=== PATIENT | male | born 1960 | race Caucasian/White ===

== ENCOUNTER 2016-07-14 15:35 | Emergency (ER) | payer SELFPAY ==
[~2016-07-14] VITALS: Ht 180.3 cm; Wt 136.4 kg
[~2016-07-14 15:35] MED LIST: ATEN25TA PO; BUPR300T52 PO; DEXT10TA PO; DICL100G8 TOPICAL; ERGO500050 PO; FLUT16SP NS; INSU100I13 SUBQ; INSU100I8 SUBQ; LISD70CA2 PO; LISI-567 PO; METF1000 PO; WARF10TA4 PO; WARF5TAB7 PO
[2016-07-14 15:38] VITALS: BP 142/94; PULSE 85; RESP 18; O2SAT 98
--- NOTE | 2016-07-14 15:48 | ED.REPORT ---
HPI-Abd Pain M 40 and Over Date of Service Jul 14, 2016 ED Provider: Benson Larsen MD Pt is a 56 y/o male w/ a hx of atrial fibrillation on Coumadin, hypertension, kidney stones, and multiple urethral surgeries who reports to the ER complaining of right flank pain that began today. Pt describes the pain as continuous and reports the pain travels down his hip. Pt c/o associated dysuria , urinary frequency, chills and nausea. Pt says he experienced this type of pain before when he had a kidney stone ten years previously. Pt has had no kidney stones since the last occurrence and reports this pain is similar. Pain is rated at a 6/10 currently and an 8/10 at its most severe. Pt denies vomiting and has not taken any medicine for the pain. Pain is slightly relieved when lying down. Pt is currently on Coumadin and his levels were last measured in March. Nursing Notes Stated Complaint: R SIDE ABD PAIN Chief Complaint: Male Abdominal Pain Nursing Notes Reviewed: Yes ([employer], [employer] not reconiciled, EMR indicates ho warfarin use) Allergies: Coded Allergies: No Known Allergies (Unverified , 07/14/16) Scheduled Atenolol (Atenolol) 25 Mg Tablet 25 MG PO DAILY Bupropion ER (Bupropion ER) 300 Mg Tab.er.24h 300 MG PO DAILY Ciprofloxacin (Ciprofloxacin) 500 Mg Tablet 500 MG PO BID Dextroamphetamine (Dextroamphetamine) 10 Mg Tablet 10 MG PO DAILY Diclofenac Gel (Voltaren Gel) 100 Gm Tube 1 APPLIC TOPICAL QID 1% Ergocalciferol (Vitamin D2) (Drisdol) 50,000 Unit Capsule 50,000 UNIT PO Q7D Fluticasone Propionate (Fluticasone Propionate Nasal) 16 Gm [place].susp 1 SPRAY NS BID Insulin Glargine (Lantus U100 Solostar Insulin Pen) 100 Unit/1 Ml Insuln.pen 80 UNIT SUBQ QPM-INSULIN Insulin Glulisine (Apidra U100 Insulin Solostar Pen) 100 Unit/1 Ml Insuln.pen 1 UNIT SUBQ TID-INSULIN Lisdexamfetamine Dimesylate (Vyvanse) 70 Mg Capsule 70 MG PO DAILY Lisinopril (Lisinopril) 20 Mg Tablet 20 MG PO DAILY Metformin (Glucophage) 1,000 Mg Tablet 1,000 MG PO BID Warfarin Sodium (Warfarin Sodium) 5 Mg Tablet 5 MG PO Hernández, , ,. Sa Warfarin Sodium (Warfarin Sodium) 10 Mg Tablet 10 MG PO Mo, We, Fr Scheduled PRN Ondansetron ODT (Ondansetron ODT) 8 Mg Tab.rapdis 8 MG PO Q4H PRN PRN For Nausea oxyCODONE-Acetaminophen 5-325 mg (oxyCODONE-Acetaminophen 5-325 mg) 1 Each Tablet 1-2 TAB PO Q6H PRN PRN For Pain General Time Seen by MD: 15:46 Chief Complaint Flank pain right Hx Obtained From: Patient Arrived By: Walk-in Sudden in Onset?: No Onset Occurred: 9 - 12 hours ago Symptom Duration: Waxes and wanes Progression since Onset: Gradually worsening Location: : Flank right Quality: Painful Severity: Current: Pain level 6 out of 10 Severity: Maximum: Pain level 8 out of 10 Recent Healthcare: No recent doctor visit, No recent hospitalization Similar Sx Previous: Yes Past Medical History Past Medical History Notes: Stress test nuclear negative March 2011 Past Medical History Hypertension Atrial fibrillation and warfarin Type 2 diabetes with neuropathy Obstructive sleep apnea on CPAP GERD History of hiatal hernia History of fatty liver History kidney stones History UTIs history of osteomyelitis of the spine Past Surgical History Multiple urethral surgeries History of ileostomy Testicular surgery secondary to abscessed testicle Carpal tunnel removal ORIF of the tibia L wrist surgery ACL repair Left anterior cruciate ligament reconstruction Left wrist surgery Smoking History Former Smoker Social History Drug Use: Denies drug use Other Social History: Good social support, Local resident Ambulatory Status Independent Review of Systems Constitutional: Reports: Chills, Denies: Fever GI: Reports: Abdominal pain (LLQ and radiates down to hip), Nausea, Denies: Vomiting Male: Reports Dysuria, Reports Urinary frequency, Reports Urination decreased Complete sys rev & neg: except as marked. Physical Exam Initial Vital Signs Vital Signs (First) Date Time Temp Pulse Resp B/P Pulse Ox O2 Delivery O2 Flow Rate FiO2 07/14/16 15:38 36.3 85 18 142/94 98 Room Air Initial VS: Reviewed, Vital signs normal Head / Eyes: Atraumatic, Normocephalic, PERRL Extremities: Vascular intact, Neuro intact, No swelling Skin: Warm, Dry Neurologic: Alert, Oriented, Nonfocal Psychiatric: Mood/affect normal, Behavior normal, Normal thought content General/Constitutional: Awake, Alert, Well appearing Appearance / Presentation: Positive: Obese does not appear to be in any overt pain Respiratory / Chest: Atraumatic (lungs are clear), Breath sounds NL, Breath sounds = bilat, No respiratory distress Cardiovascular: Heart rate NL, Regular rhythm, Heart sounds NL, No gallop, No murmurs, No rubs no edema Abdomen: Atraumatic, Soft, Non-tender Back: Atraumatic, Non-tender, No CVA tenderness Interpretation & Diagnostics Interpretation & Diagnostics: IMPRESSION: 1. Obstructive right ureterolithiasis at the ureterovesicular junction with a 3 mm in diameter calculus. There is resultant moderate hydronephrosis, moderate hydroureter and perinephric and periureteral fat stranding as above. This finding was discussed with Dr. Larsen at 4:43 PM on 07/14/16. 2. Nonobstructive left nephrolithiasis. 3. Normal appendix. Dictated by: Maria Luisa Ruelas M.D. on 07/14/2016 at 16:43 Approved by: Maria Luisa Ruelas M.D. on 07/14/2016 at 16:43 Lab Results Interpretation Result Diagram: 07/14/16 1555 07/14/16 1555 Test 07/14/16 15:55 07/14/16 17:00 White Blood Count 13.0th/mm3 (3.8-10.1) Red Blood Count 4.41mil/mm3 (4.40-5.80) Hemoglobin 13.6g/dL (13.8-17.2) Hematocrit 40.2% (41.0-50.0) Mean Corpuscular Volume 91.2fL (81-100) Mean Corpuscular Hemoglobin 30.8pg (27.0-35.0) Mean Corpuscular Hemoglobin Concent 33.8% (32.0-37.0) Red Cell Distribution Width 13.3% (12.3-15.4) Platelet Count 255bil/L (150-400) Neutrophils (%) (Auto) 80.3% (40-74) Lymphocytes (%) (Auto) 12.2% (14-46) Monocytes (%) (Auto) 6.6% (4-12) Eosinophils (%) (Auto) 0.4% (0-5) Basophils (%) (Auto) 0.2% (0-3) Prothrombin Time 13.6sec (8.1-12.5) Prothromb Time International Ratio 1.26ratio Sodium Level 136mEq/L (134-144) Potassium Level 4.3mEq/L (3.5-5.2) Chloride Level 98mEq/L (97-108) Carbon Dioxide Level 24mmol/L (18-29) Blood Urea Nitrogen 11mg/dL (6-24) Creatinine 0.76mg/dL (0.76-1.27) Estimat Glomerular Filtration Rate 112mL/min (>59) Glucose Level 247mg/dL (60-99) Calcium Level 9.1mg/dL (8.5-10.1) Magnesium Level 1.6mg/dL (1.6-2.6) Total Bilirubin 0.3mg/dL (0.0-1.2) Aspartate Amino Transf (AST/SGOT) 22U/L (0-50) Alanine Aminotransferase (ALT/SGPT) 38U/L (0-44) Alkaline Phosphatase 85U/L (25-150) Total Protein 7.7g/dL (6.4-8.4) Albumin 4.0g/dL (3.4-5.0) Lipase 19U/L (13-60) Hold [place]ates Top Tube Received (Received) Urine Color Yellow (YELLOW) Urine Appearance Cloudy (CLEAR,HAZY) Urine pH 5.5 (5.0-8.0) Urine Specific [place] 1.025 (1.003-1.035) Urine Protein 100mg/dL (NEG,TRACE) Urine Glucose (UA) 250mg/dL (NEGATIVE) Urine Ketones Tracemg/dL (NEGATIVE) Urine Occult Blood Large (NEGATIVE) Urine Nitrite Negative (NEGATIVE) Urine Bilirubin Negative (NEGATIVE) Urine Urobilinogen Normalmg/dL (NORMAL) Urine Leukocyte Esterase Small (NEGATIVE) Urine RBC >50/hpf (0-2) Urine WBC 11-50/hpf (0-5) Urine Epithelial Cells Few/hpf (NONE-MOD) Urine Crystals None seen (NONE SEEN) Urine Bacteria Few/hpf (NONE-FEW) Urine Hyaline Casts None/lpf (NONE) Urine Granular Casts None seen (NONE SEEN) Urine Waxy Casts None seen (NONE SEEN) Urine Red Blood Cell Casts None seen (NONE SEEN) Urine White Blood Cell Casts None seen (NONE SEEN) Urine Mucus None seen (None Seen) Urine Trichomonas None seen (NONE SEEN) Urine Yeast None (NONE SEEN) Urinalysis Comment None Urine Culture Reflexed Indicated Lab Results Interpretation: CBC positive leukocytosis CMP normal except for mild hyperglycemia next sign UA has borderline markers for infection, culture pending Re-Eval/Medical Decision Med Decision/Clinical Course This is a 56-year-old male presents with right flank pain and symptoms he says are somewhat similar to kidney stones. The patient had multiple urologic surgeries down in [place] including as the specialized urethral repairs, was also had surgeries for a very large stone removal-last intervention was about 10 years ago. He is on chronic warfarin. He is afebrile, does not appear toxic, appears only mildly uncomfortable. His abdomen is soft nontender without peritoneal signs. He is workup reveals a 3 mm stone at the right UVJ, face, couple markers for possible infection-but is not febrile, does not clinically appear septic or infected, and the findings are not definitive. Given the patient does have a stone he has been covered with antibiotics or cultures are pending. Patient feels much improved and is being discharged with routine precautions on a course of oxycodone, ondansetron, and ciprofloxacin. Patithanh's INR was Subtherapeutic but given he is receiving antibiotics which may increase it, the plan is for an INR recheck on Monday through his PCP. Source of Hx: Old records Time of Eval: 17:43 Patient Status: Condition unchanged Re-Evaluation/Progress Note: Pt rechecked. Informed pt of diagnosis of kidney stone and plan for treatment. Pt understands and agrees with plan for treatment. F/U and RTER warnings given. All questions addressed. Differential Diagnosis: Positive: Urolithiasis, Negative: Abdominal aortic aneurysm, Bowel obstruction, C. diff colitis, Esophageal rupture, Gun shot wound abdomen, Pancreatitis, Peritonitis, Stab wound abdomen, Urinary retention Counseled Regarding: Diagnosis, Lab results, Need for follow-up, When/why to return to ED Discharge & Departure Primary Impression: Kidney stone Additional Impression: Subtherapeutic international normalized ratio (INR) Disposition: Home Vital Signs - All Vital Signs Date Time Temp Pulse Resp B/P Pulse Ox O2 Delivery O2 Flow Rate FiO2 07/14/16 18:03 63 133/74 96 Room Air 07/14/16 17:32 63 133/74 96 07/14/16 15:38 36.3 85 18 142/94 98 Room Air )( All Prior VS Reviewed: Yes Condition: Stable Additional Instructions: 1. Your CT scan reveals a history of a small 3 mm stone at the right side. Made it all the way to adjacent to the bladder, and because is net to the wall of the bladder it causes that sense of urgency and discomfort with urination. 2. This size stone usually passes on its own and does not typically require intervention. 3. Take ibuprofen 400mg three times a day for the next several days (helps relax the ureter and helps improve pain relief) 4. Oxycodone/APAP 5/325 one to 2 tabs up to every 4-6 hours if needed for severe pain. Note: This medication does contain a narcotic and causes drowsiness. No driving for at least 4-6 hours after taking. Use only as needed. 5. If needed for nausea take ondansetron 8 mg-that dissolves underneath the tongue-up to every 4 hours. 6. Your urine had a few markers of a *possible* but not definite infection. We have sent a urine "culture" today which usually takes ~2 days. Take the antibiotic ciprofloxacin 500mg twice a day for the next 7 days. Call in 2 days to check urine results. 6. Return if new, worsening, or uncontrolled symptoms occur. 7. Your Coumadin level INR was low at 1.2. The antibiotics usually increase your Coumadin level slightly. You should follow up with your doctor for a recheck of your Coumadin level on Monday. 8. You can follow up with the urologist Dr. Ramesh as needed. Referrals: Elisa Layne (PCP) Joe Attestation Portion of this note were transcribed by Catalina Lara and Lori Cano. I, Dr. Larsen, personally performed the history, physcial exam, and medical decision- making: I reviewed and confirmed the accuracy for the information in the transcribed note. Signed by: joe Chua, 07/14/16 1800 Signed by: Joe Manjarrez, 07/14/2016 1801 copies to: Elisa Layne Matthew F MD Jul 14, 2016 15:48 LORI CANO Jul 14, 2016 16:04 Catalina Lara Jul 14, 2016 18:02
[2016-07-14] MEDS ORDERED: 0.9% Sodium Chloride 1,000 ML IV ONE (16:00)
[2016-07-14] MEDS ORDERED: Ondansetron 2 mg/mL 2 mL Inj IVPUSH ONE (16:00)
[2016-07-14] MEDS ORDERED: HYDROmorphone 0.5 mg/0.5 mL iSecure Syringe IVPUSH PRN (16:00)
[2016-07-14 16:15] LABS: BASOPHILS % (AUTO) 0.2 % (0-3); EOSINOPHILS % (AUTO) 0.4 % (0-5); MONOCYTES % (AUTO) 6.6 % (4-12); Mean Corpuscular Hemoglobin 30.8 pg (27.0-35.0); Mean Corpuscular Volume 91.2 fL (81-100); NEUTROPHILS % (AUTO) 80.3 % (40-74); Platelet Count 255 bil/L (150-400)
[2016-07-14 16:28] LABS: INR 1.26 ratio
[2016-07-14 16:35] LABS: Magnesium 1.6 mg/dL (1.6-2.6)
--- NOTE | 2016-07-14 16:45 | DRSVH ---
PROCEDURE: CT KUB ([id number]) INDICATIONS: R Flank pain TECHNIQUE: Noncontrast 5 mm thick sections acquired from the diaphragms to the symphysis. 5 mm thick coronal an d sagittal reformats were then performed. For radiation dose reduction, the following was used: aut omated exposure control, adjustment of mA and/or kV according to patient size. COMPARISON: [facility] [place] , [place], KUB - CT ([facility] [place] 02/11/2008, 11:33. FINDINGS: Image quality: Excellent. Lung bases: Lung bases are clear. Heart size is normal. Urinary system: Both kidneys are normal in size. No left hydronephrosis. There are punctate left sherif l calculi which are nonobstructing. No left hydroureter or ureterolithiasis. There is moderate right hydronephrosis and demonstrates perinephric fat stranding. The right ureter is dilated throughout its course with periureteral fat stranding. A 3 mm diameter calculus is present within the right uretero vesicular junction. The bladder is partially fluid-filled and thin-walled. No other bladder calculi. Other solid organs: Liver and spleen are normal in size. Gallbladder is unremarkable. Pancreas is normal in contours. Punctate calcifications are present in the pancreatic head which may be associate d with prior acute pancreatitis. No adrenal nodules. Peritoneum and bowel: Unenhanced bowel loops demonstrate normal wall thickness and caliber. The appe ndix is thin walled and gas filled. No free fluid or air. Nodes and vessels: No retroperitoneal or mesenteric adenopathy by size criteria. Aorta and inferior vena cava are normal in caliber. There are scattered atheromatous calcifications throughout the aor ta and iliac arteries bilaterally. Abdominal wall: No ventral hernias. Pelvis: No free pelvic fluid. No inguinal hernias or adenopathy. Bones: No suspicious bony lesions. No vertebral body compression fractures. IMPRESSION: 1. Obstructive right ureterolithiasis at the ureterovesicular junction with a 3 mm in diameter calcul us. There is resultant moderate hydronephrosis, moderate hydroureter and perinephric and periureteral fat stranding as above. This finding was discussed with Dr. Larsen at 4:43 PM on 07/14/16. 2. Nonobstructive left nephrolithiasis. 3. Normal appendix. Dictated by: Maria Luisa Ruelas M.D. on 07/14/2016 at 16:43 Approved by: Maria Luisa Ruelas M.D. on 07/14/2016 at 16:43
[2016-07-14] MEDS ORDERED: OXYC1TAB24 PO (16:56)
[2016-07-14] MEDS ORDERED: ONDA8TAB10 PO (16:56)
[2016-07-14 17:32] VITALS: BP 133/74; PULSE 63; O2SAT 96
[2016-07-14 17:34] LABS: APPEARANCE,URINE CLOUDY (CLEAR,HAZY); COLOR,URINE YELLOW (YELLOW); PH,URINE 5.5 (5.0-8.0); UROBILINOGEN,URINE NORMAL (NORMAL)
[2016-07-14 17:35] LABS: OCCULT BLOOD,URINE LARGE (NEGATIVE)
[2016-07-14] MEDS ORDERED: levoFLOXacin 500 mg Tablet PO ONE (17:40)
[2016-07-14] MEDS ORDERED: CIPR-198 PO (17:40)
[2016-07-14 18:03] VITALS: BP 133/74; PULSE 63; O2SAT 96
== END 2016-07-14 18:03 | disposition home or self-care (01) ==
LOC: SED 15:35
DX: N20.0 Calculus of kidney (principal); R79.1 Abnormal coagulation profile; I48.91 Unspecified atrial fibrillation; I10 Essential (primary) hypertension; E11.40 Type 2 diabetes mellitus with diabetic neuropathy, unspecified; K21.9 Gastro-esophageal reflux disease without esophagitis; Z87.442 Personal history of urinary calculi; Z87.440 Personal history of urinary (tract) infections; Z98.890 Other specified postprocedural states; Z93.2 Ileostomy status; Z87.891 Personal history of nicotine dependence; Z79.01 Long term (current) use of anticoagulants; Z79.4 Long term (current) use of insulin; Z79.84 Long term (current) use of oral hypoglycemic drugs
CPT/HCPCS: 36415; 74176; 80053; 81000; 83690; 83735; 85025; 85610; 87086; 87088; 96361; 96374; 96375; 99285; J1170; J2405; J7030